=== PATIENT | male | born 1985 | race Caucasian/White ===

== ENCOUNTER 2024-10-27 14:00 | Emergency (ER) | payer SELFPAY ==
[~2024-10-27] VITALS: Ht 167.6 cm; Wt 75.0 kg
[2024-10-27 14:09] VITALS: TEMP 36.9; O2SAT 100
[2024-10-27 16:05] LABS: CREATININE 0.7 mg/dL (0.6-1.3)
[2024-10-27 16:06] LABS: UREA NITROGEN BLOOD 10 mg/dL (9-23)
[2024-10-27 16:15] LABS: ETHANOL BLOOD 373 mg/dL (<10)
[2024-10-27 16:20] LABS: BASOPHILS % 0.6 % (0.0-2.0); EOSINOPHILS % 0.1 % (0.0-5.0); HEMATOCRIT. 48.0 % (42.0-52.0); HEMOGLOBIN. 16.8 g/dL (14.0-18.0); LYMPHOCYTES % 31.3 % (20.0-50.0); MEAN PLATELET VOLUME 7.8 fl (7.4-10.4); MONOCYTES % 8.3 % (2.0-8.0); NEUTROPHILS % 59.7 % (40.0-76.0); PLATELET 366 x1000/uL (130-400); RED BLOOD CELL COUNT 5.28 mill/uL (4.7-6.1); RED CELL DISTRIBUTION WIDTH 13.0 % (11.6-14.6)
[2024-10-27] MEDS ORDERED: POTASSIUM CHLORIDE 20MEQ/PACKET PO ONE (19:15)
[2024-10-27] MEDS ORDERED: CHLORDIAZEPOXIDE 25MG CAPSULE PO ONE (19:15)
[2024-10-27 21:51] LABS: *AMPHETAMINES SCREEN URINE PRESUMPTIVE POSITIVE (NEGATIVE); *BARBITURATES SCREEN URINE NEGATIVE (NEGATIVE); *BENZODIAZEPINES SCREEN URINE NEGATIVE (NEGATIVE); *COCAINE SCREEN URINE NEGATIVE (NEGATIVE)
[2024-10-27 21:52] LABS: CANNABINOID URINE SCREEN NEGATIVE (NEGATIVE); ECSTASY MDMA SCREEN URINE NEGATIVE (NEGATIVE); METHADONE URINE SCREEN NEGATIVE (NEGATIVE); OPIATES URINE SCREEN NEGATIVE (NEGATIVE); PHENCYCLIDINE URINE SCREEN NEGATIVE (NEGATIVE)
[2024-10-27] MEDS: CHLORDIAZEPOXIDE 25MG CAPSULE PO NR (23:42)
[2024-10-27] MEDS: POTASSIUM CHLORIDE 20MEQ/PACKET PO NR (23:42)
[2024-10-28 00:37] VITALS: BP 111/83; PULSE 96; RESP 16; O2SAT 98
== END 2024-10-28 00:46 | disposition home or self-care (01) ==
LOC: ER 14:00 → EDBD 14:00 → ER 10-28 00:46
DX: F10.129 Alcohol abuse with intoxication, unspecified (principal); Z79.899 Other long term (current) drug therapy; Y90.8 Blood alcohol level of 240 mg/100 ml or more
CPT/HCPCS: 36415; 80048; 80305; 80320; 85025; 99291; G0480